=== PATIENT | female | born 2000 | race Caucasian/White ===

== ENCOUNTER → 2018-01-03 12:32 | Outpatient (CLI) | payer OTHER, SELFPAY ==
--- NOTE | 2018-01-03 12:36 | US_ITS ---
STUDY: ULTRASOUND TRANSVAGINAL CLINICAL: Female, 17 years old. Menorrhagia, history of IUDTCs 2013.. LMP 12/19/2017 TECHNIQUE: Transvaginal COMPARISON: None. FINDINGS: Normal uterine size measuring 9 x 6.5 x 4.4 cm . There are no myometrial masses. Normal endometrial thickness measuring 13 mm. There are no endometrial masses, and there is no fluid in the endometrial cavity. There is an anterior uterine device in lower uterine position. There are nabothian cysts. Normal right ovary, measuring 4 x 4 x 1.8 cm. There is a 1.2 x 1.4 x 1 cm cyst. Normal left ovary, measuring 2.8 x 2.5 x 2.3 cm. There are multiple follicles without a dominant cyst. There is mild free fluid in the pelvis. Urinary bladder volume 200 mm. US/Transvaginal Non- IMPRESSION: Intrauterine device in the lower uterine segment position. Small right ovarian cyst. No adnexal masses, large pelvic fluid or ovarian torsion. Electronically Signed: Neeru Lala MD at 7:13 EDT , Service support ,
--- NOTE | 2018-01-03 12:36 | US_ITS ---
STUDY: ULTRASOUND TRANSVAGINAL CLINICAL: Female, 17 years old. Menorrhagia, history of IUDTCs 2013.. LMP 12/19/2017 TECHNIQUE: Transvaginal COMPARISON: None. FINDINGS: Normal uterine size measuring 9 x 6.5 x 4.4 cm . There are no myometrial masses. Normal endometrial thickness measuring 13 mm. There are no endometrial masses, and there is no fluid in the endometrial cavity. There is an anterior uterine device in lower uterine position. There are nabothian cysts. Normal right ovary, measuring 4 x 4 x 1.8 cm. There is a 1.2 x 1.4 x 1 cm cyst. Normal left ovary, measuring 2.8 x 2.5 x 2.3 cm. There are multiple follicles without a dominant cyst. There is mild free fluid in the pelvis. Urinary bladder volume 200 mm. US/Pelvic (Non ) IMPRESSION: Intrauterine device in the lower uterine segment position. Small right ovarian cyst. No adnexal masses, large pelvic fluid or ovarian torsion. Electronically Signed: Neeru Lala MD at 7:13 EDT , Service support ,
== END ==
PROVIDERS: Family Provider Pediatrics; PCP Pediatrics; Visit Provider Internal Medicine
DX: N92.0 Excessive and frequent menstruation with regular cycle (principal)
CPT/HCPCS: 76830; 76856; 93976

== ENCOUNTER → 2019-02-03 | Outpatient (CLI) | payer OTHER, SELFPAY ==
[2019-02-03 20:05] LABS: Chlamydia Trachomatis by PCR Negative (Negative); Neisserai gonorrhoeae by PCR Negative (Negative); Probe Check PASS; Sample Adequacy Control PASS; Specimen Processing Control PASS
[2019-02-08 12:26] LABS: HPV Reflexed? NOT INDICATED
== END | disposition home or self-care (01) ==
LOC: LABSPEC 16:25
PROVIDERS: Family Provider Pediatrics; PCP Pediatrics; Referring Provider Obstetrics & Gynecology; Visit Provider Obstetrics & Gynecology
DX: Z12.4 Encounter for screening for malignant neoplasm of cervix (principal); Z11.3 Encounter for screening for infections with a predominantly sexual mode of transmission
CPT/HCPCS: 87491; 87591; 88175; G0145

== ENCOUNTER → 2020-12-19 14:53 | Outpatient (CLI) | payer BC, SELFPAY ==
[2020-12-20 09:24] LABS: HIV - WCH Non-Reactive (Nonreactive); Hepatitis B Surface Antigen Non-Reactive (Nonreactive); Hepatitis C Antibody Non-Reactive (Nonreactive); Syphilis Antibodies Non-reactive
== END ==
PROVIDERS: PCP Pediatrics; Visit Provider Obstetrics & Gynecology
DX: Z11.3 Encounter for screening for infections with a predominantly sexual mode of transmission (principal)
CPT/HCPCS: 36415; 86703; 86780; 86803; 87340

== ENCOUNTER → 2023-01-21 | Outpatient (CLI) | payer BC, SELFPAY ==
[2023-01-22 21:07] LABS: Chlamydia By Nucleic Acid AMP Negative (Negative); Gonococcus By Nucleic Acid AMP Negative (Negative)
[2023-03-27 20:45] LABS: HPV Reflexed? NOT INDICATED
== END | disposition home or self-care (01) ==
PROVIDERS: Referring Provider Obstetrics & Gynecology; Visit Provider Obstetrics & Gynecology
DX: Z12.4 Encounter for screening for malignant neoplasm of cervix (principal); N89.8 Other specified noninflammatory disorders of vagina
CPT/HCPCS: 87070; 87205; 87491; 87591; 88175; G0145

== ENCOUNTER → 2023-01-28 | Outpatient (CLI) | payer BC, SELFPAY ==
--- NOTE | 2023-01-28 12:31 | US_ITS ---
STUDY: ULTRASOUND OF THE FEMALE PELVIS - COMPLETE REASON FOR EXAM: Female, 22 years old. aub LMP: January 25, 2023. TECHNIQUE: Transabdominal and Transvaginal TECHNICAL QUALITY: Adequate. COMPARISON: None. FINDINGS: The uterus is anteverted and is in a midline position. The uterus measures 9.5 cm x 5.4 cm x 4.4 cm. Normal uterine cervix. The endometrium measures 5 mm in thickness, and is fluid distended. There is no demonstrated endometrial mass. There is no demonstrated myometrial mass. I.U.D. - The patient does not have an I.U.D. The right ovary is visualized. The right ovary measures 1.9 cm x 2.1 cm x 1.2 cm. There is no right ovarian cyst or ovarian mass. There is no visualized right adnexal mass or complex lesion. There is normal arterial and normal venous vascularity. The left ovary is visualized. The left ovary measures 3.4 cm x 3.1 cm x 3.3 cm. There is a 1.5 cm x 0.8 cm x 0.8 cm echogenic nodule in the left ovary. This may represent residual from a ruptured follicle. There is also evidence of a dominant follicle measuring 1.2 cm x 1.1 cm x 1 cm. There is no visualized left adnexal mass or complex lesion. There is normal arterial and normal venous vascularity. There is minimal fluid in the cul-de-sac. The pre void volume of the bladder was 220 ml. US/Pelvic (Non ) IMPRESSION: Mildly fluid distended endometrium. The patient is presently on their menstrual cycle. Findings suggestive of a dominant follicle in the left ovary as well as a residual from a ruptured follicle. Electronically Signed: Shun Rodriguez MD at 12:46 EDT ,
== END | disposition home or self-care (01) ==
PROVIDERS: Referring Provider Obstetrics & Gynecology; Visit Provider Obstetrics & Gynecology
DX: N93.9 Abnormal uterine and vaginal bleeding, unspecified (principal)
CPT/HCPCS: 76830; 76856

== ENCOUNTER 2023-04-08 08:56 | Outpatient (RCR) | payer BC, SELFPAY ==
--- NOTE | 2023-06-25 09:38 | HP.PTEVAL_ITS ---
Patient's Visit Information Visit Information Visit Information: TROY WARD is a 23 year old F referred to Physical Therapy by Dr. Shital Mcintosh DO with a diagnosis of Pelvic and Perineal Pain. Date of Evaluation: 04/08/23 Physical Therapist: Griselda Mann PT, Cert MDT Visit Plan Frequency: 1x/Week Duration: 1 Week Plan: EVAL ONLY. Subjective Subjective: Work/Leisure: [employer] - [employer]. WORKS FROM HOME. Disability: NO Present symptoms: About a year ago PATIENT REPORTS SHE HAS BEEN HAVING PAIN AFTER INTERCOURSE IN LOWER ABDOMEN. Patient reports the pain is intense and she gets BACK AND LOWER STOMACH pain and CRAMPS. Gets sweaty and nauseated. This happens about 50% of the time after intercourse. Also having a little bit of UI with things like jumping, coughing and sneezing but this is not new and patient isn't sure it is related. Patient reports UI started about 10 years ago after she broke her back in gymnastics and it is just with activity. Patient reports her pain after intercourse started about a year ago after she had IUD removed. Had IUD removed because she was spotting like 20 days in a row. Pain Scale: WORST 7/10, LEAST 0/10 Currently: 0/10 Is it getting better, worse or staying the same: MAYBE GETTING BETTER. LAST EPISODE WAS ABOUT 3 WKS AGO. Disturbed sleep: NO Coughing/sneezing/straining: POSITIVE FOR UI Gait: NORMAL How long can you delay the need to urinate: NEEDED Prolapse (Falling out feeling): NO Frequency of Urination: 4 TO 5 TIMES A DAY. Ability to stop urine flow: YES Ability to initiate urine stream: YES Dyspareunia: YES Bowel Incontinence: NO Unexplained weight loss: NO Imaging: NORMAL US OF PELVIC AREA RECENTLY PER PATIENT REPORT. NO RECENT LUMBAR IMAGING. PMH/Recent major surgery: Patient reports having a D&C approx 2015 when IUD was implanted - patient reports she was told she was bleeding a lot due to having 3x's the normal amount of uterine lining and therefore D&C was recommended. Patient reports Dr. Swathi Fletcher thinks she has endometriosis. PATIENT REPORTS A HISTORY OF SIDE EFFECTS TO ESTROGEN IN CONTROL PILLS. TAKING ACNE MEDICATION. PARS DEFECT TOM L5 - TREATED WITH REST, BRACE AND PT - ABLE TO DO [employer]ING [employer] DIVING THROUGHOUT COLLE[employer] AND H[employer]. OTHER: CURRENTLY WEIGHT LIFTING. HAVING SOME SOME NUMBNESS AND TINGLING IN LEGS ONE DAY BUT FINE NOW. INTERMITTENT LBP. Objective Objective: Posture: FAIR. NORMAL LORDOSIS WITH NO RELEVANT LATERAL SHIFT. Other Observations: INDEP GAIT AND TRANSFERS Sensory deficit: TOM LE LIGHT TOUCH SENSATON GROSSLY INTACT AND SYMMETRICAL ROM deficit: TIGHT TOM LE GASTROC-SOLEUS COMPLEX'S. Motor deficit: TOM LE'S 5/5 WITH MMT'ING. Dural Signs: NEGATIVE TOM LE'S. Lumbar mvmt loss: flex - NIL ext - NIL R SG - NIL L SG - NIL C/O MILD L LB PAIN PAIN WITH R SG TESTING. Core strength: GOOD Palpation: NO ACUTE LUMBAR TENDERNESS. INTERNAL MANUAL PELVIC EXAM NOT PERFORMED. THIS PT RECOMMENDED PATIENT CONSIDER DISCUSSING CONSULT WITH [facility] WITH DR. Armstrong. PATIENT IS AGREEABLE. FUNCTIONAL SCREEN: Incontinence Impact Questionnaire Score: 0 Urogenital Distress Inventory Score: 7 Anticipated Interventions Patient/Client Instruction: Educate patient on: Condition, Plan of Care and Risk Factors For the Purpose of:: To improve self management Text: Thank you for the opportunity to evaluate your patient. For Medicare and Medicare HMO plans, please review the plan of care and approve it. It will need to be FAXED BACK to us at [phone] for Medicare purposes. For Medicare only, by signing this I certify the plan of care. Please let me know if there are questions or concerns regarding this plan of care. Physician Signature: Date:
--- NOTE | 2023-06-25 09:40 | HP.PT.NRP ---
Patient Information Patient Information: TROY WARD was seen in my office for initial evaluation on 04/08/23. The following Plan of Care was established for this patient: POC Established Initial Frequency: 1x/Week Initial Duration: 1 Week Anticipated Interventions Patient/Client Instruction: Educate patient on: Condition, Plan of Care and Risk Factors For the Purpose of:: To improve self management Last Seen Last Seen: This patient was last seen in our office 04/08/23. Pertinent comments regarding their Physical therapy will appear below: Evaluation only. At this point I will be discontinuing this patient from physical therapy. I would be happy to see this patient again in the future if found appropriate by the physician. Thank you! Griselda Mann, PT, Cert MDT
== END 2023-04-08 19:00 | disposition home or self-care (01) ==
LOC: PT 08:56
PROVIDERS: Referring Provider Obstetrics & Gynecology; Visit Provider Obstetrics & Gynecology
DX: R10.2 Pelvic and perineal pain (principal)
CPT/HCPCS: 97162